=== PATIENT | female | born 1980 | race Caucasian/White ===

== ENCOUNTER → 2018-11-20 | Outpatient (CLI) | payer MEDICAID ==
[~2018-11-20] MED LIST: FLUC150T PO; HYDR-4226 PO
--- NOTE | 2018-11-20 20:34 | Diagnostic Imaging Report ---
INDICATION: Left-sided kidney stone. TIME OF EXAM: 1:21 PM No prior studies are available for comparison. FINDINGS: The bowel gas pattern is unremarkable. No definite calculi are seen overlying the renal shadows. No calculi along the course of the ureters are seen. IMPRESSION: Unremarkable KUB. Dictated by: Dictated on workstation # [id number]
== END ==
LOC: RAD 13:08
PROVIDERS: ATTEND Urology
DX: N20.0 Calculus of kidney (principal)
CPT/HCPCS: 74018